=== PATIENT | male | born 1970 | race African-American/Black ===

== ENCOUNTER 2021-08-13 01:53 | Emergency (ER) | payer MEDICAID ==
[~2021-08-13] VITALS: Ht 190.5 cm; Wt 145.0 kg
[2021-08-13] MEDS ORDERED: HYDROCHLOROTHIAZIDE 25MG TABLET PO ONE (02:30)
[2021-08-13] MEDS ORDERED: CLONIDINE 0.1MG TABLET PO ONE (02:30)
[2021-08-13 03:10] VITALS: BP 156/85
== END 2021-08-13 03:31 | disposition home or self-care (01) ==
LOC: ER 01:53
DX: I10 Essential (primary) hypertension (principal); Z71.89 Other specified counseling
CPT/HCPCS: 99283

== ENCOUNTER 2021-08-20 23:28 | Inpatient (IN) | payer MEDICAID ==
[~2021-08-20] VITALS: Ht 188 cm; Wt 167.4 kg
[2021-08-21] MEDS ORDERED: NITROGLYCERIN 0.4MG TABLET SL SL PRN (03:00)
[2021-08-21] MEDS ORDERED: ASPIRIN 81MG TABLET PO ONE (03:00)
[2021-08-21 03:26] LABS: BASOPHILS % 0.4 % (0.0-2.0); EOSINOPHILS % 0.2 % (0.0-5.0); HEMATOCRIT. 37.9 % (42.0-52.0); HEMOGLOBIN. 12.7 g/dL (14.0-18.0); LYMPHOCYTES % 7.4 % (20.0-50.0); MEAN CORPUSCULAR HEMOGLOBIN 28.6 pg (28.0-32.0); MEAN CORPUSCULAR VOLUME 85.5 fL (80.0-94.0); PLATELET 356 x1000/uL (130-400); RED BLOOD CELL COUNT 4.43 mill/uL (4.7-6.1); RED CELL DISTRIBUTION WIDTH 13.6 % (11.6-14.6)
[2021-08-21 03:35] LABS: CHLORIDE 101 mEq/L (98-107)
[2021-08-21] MEDS ORDERED: AZITHROMYCIN 500MG/250ML 250 ML IV NR (05:00)
[2021-08-21] MEDS ORDERED: CEFTRIAXONE 1 G PREMIX 50 ML IV NR (05:00)
[2021-08-21 10:00] VITALS: BP 131/83
[2021-08-21] MEDS ORDERED: IOHEXOL-350 100 ML BOTTLE ONE (10:11)
[2021-08-21] MEDS ORDERED: IPRATROPIUM/ALBUTEROL 0.5-3(2.5)MG/3ML NEB HHN PRN (11:00)
[2021-08-21] MEDS ORDERED: ACETAMINOPHEN 325MG TABLET PO PRN (11:00)
[2021-08-21] MEDS ORDERED: ONDANSETRON HCL 4MG/2ML INJ IV PRN (11:00)
[2021-08-21] MEDS ORDERED: METF-873 PO (11:30)
[2021-08-21] MEDS ORDERED: ATOR40TA70 PO (11:30)
[2021-08-21] MEDS ORDERED: BENA40TA9 PO (11:30)
[2021-08-21] MEDS ORDERED: ASPI-1497 PO (11:30)
[2021-08-21] MEDS ORDERED: CARV3.1242 PO (11:30)
[2021-08-21] MEDS ORDERED: CHLO25TA2 PO (11:30)
[2021-08-21] MEDS ORDERED: AMLO10TA80 PO (11:30)
[2021-08-21 12:00] VITALS: BP 148/83
[2021-08-21] MEDS: LEVOFLOXACIN 500MG PREMIX 100 ML IV SCH (15:58)
[2021-08-21 16:00] VITALS: BP 120/70
[2021-08-21 17:48] LABS: *AMPHETAMINES SCREEN URINE NEGATIVE (NEGATIVE); *BARBITURATES SCREEN URINE NEGATIVE (NEGATIVE); *BENZODIAZEPINES SCREEN URINE NEGATIVE (NEGATIVE); *COCAINE SCREEN URINE NEGATIVE (NEGATIVE); OPIATES URINE SCREEN NEGATIVE (NEGATIVE)
[2021-08-21 17:49] LABS: CANNABINOID URINE SCREEN NEGATIVE (NEGATIVE); PHENCYCLIDINE URINE SCREEN NEGATIVE (NEGATIVE)
[2021-08-21 17:52] LABS: METHADONE URINE SCREEN NEGATIVE (NEGATIVE)
[2021-08-21 20:00] VITALS: BP 129/70
[2021-08-21] MEDS ORDERED: NALOXONE HCL 0.4MG/ML VIAL IV PRN (20:45)
[2021-08-22] VITALS: BP 129/70
[2021-08-22 04:00] VITALS: BP 102/67
[2021-08-22 06:43] LABS: CHLORIDE 103 mEq/L (98-107)
[2021-08-22 06:45] LABS: BASOPHILS % 0.3 % (0.0-2.0); EOSINOPHILS % 1.7 % (0.0-5.0); HEMATOCRIT. 37.2 % (42.0-52.0); HEMOGLOBIN. 12.5 g/dL (14.0-18.0); LYMPHOCYTES % 18.5 % (20.0-50.0); MEAN CORPUSCULAR HEMOGLOBIN 28.8 pg (28.0-32.0); MEAN CORPUSCULAR VOLUME 85.2 fL (80.0-94.0); MEAN PLATELET VOLUME 7.2 fl (7.4-10.4); MONOCYTES % 10.2 % (2.0-8.0); NEUTROPHILS % 69.3 % (40.0-76.0); PLATELET 296 x1000/uL (130-400); RED BLOOD CELL COUNT 4.36 mill/uL (4.7-6.1); RED CELL DISTRIBUTION WIDTH 13.8 % (11.6-14.6)
[2021-08-22 08:25] VITALS: BP 116/85
[2021-08-22] MEDS: ASPIRIN 81MG TABLET PO SCH (08:31)
[2021-08-22] MEDS: HYDROCODONE/ACETAMINOPHEN 5/325MG TABLET PO PRN ×2 (08:32→17:01)
[2021-08-22 12:15] VITALS: BP 117/78
[2021-08-22 16:05] VITALS: BP 139/89
[2021-08-22] MEDS: LEVOFLOXACIN 500MG PREMIX 100 ML IV SCH (16:27)
[2021-08-22 20:00] VITALS: BP 129/89
[2021-08-22] MEDS: METHYLPREDNISOLONE SOD SUCC 125 MG/2 ML VIAL IV SCH (22:00)
[2021-08-23] VITALS: BP 134/88
[2021-08-23] MEDS: IPRATROPIUM/ALBUTEROL 0.5-3(2.5)MG/3ML NEB HHN SCH ×3 (00:58→15:10)
[2021-08-23 04:00] VITALS: BP 143/88
[2021-08-23] MEDS: METHYLPREDNISOLONE SOD SUCC 125 MG/2 ML VIAL IV SCH ×2 (05:16→14:19)
[2021-08-23 08:00] VITALS: BP 140/96
[2021-08-23] MEDS: ASPIRIN 81MG TABLET PO SCH (08:57)
[2021-08-23] MEDS ORDERED: LEVOFLOXACIN 500MG TABLET PO SCH (11:00)
[2021-08-23 11:38] VITALS: BP 152/94
[2021-08-23] MEDS: DILTIAZEM HCL 30MG TABLET PO SCH ×2 (11:47→19:15)
[2021-08-23] MEDS ORDERED: DILT240C91 MT (12:35)
[2021-08-23] MEDS ORDERED: P20 MT (12:35)
[2021-08-23] MEDS ORDERED: LEVO500T89 MT (12:35)
[2021-08-23] MEDS ORDERED: CLONIDINE 0.1MG TABLET PO PRN (15:00)
[2021-08-23 16:00] VITALS: BP 152/95
[2021-08-23 16:27] VITALS: BP 152/94
[2021-08-23] MEDS ORDERED: SULF1TAB48 MT (16:29)
== END 2021-08-23 20:00 | disposition home or self-care (01) | DRG 203 ==
LOC: ER 23:28 → 6WST 08-21 04:57 → ENRESERV 08-21 07:21
PROVIDERS: ADMIT Internal Medicine; ATTEND Internal Medicine
DX: M94.0 Chondrocostal junction syndrome [Tietze] (principal); J96.01 Acute respiratory failure with hypoxia; N17.0 Acute kidney failure with tubular necrosis; E44.1 Mild protein-calorie malnutrition; J18.9 Pneumonia, unspecified organism; D64.9 Anemia, unspecified; E11.9 Type 2 diabetes mellitus without complications; E66.01 Morbid (severe) obesity due to excess calories; I10 Essential (primary) hypertension; I87.2 Venous insufficiency (chronic) (peripheral); I87.8 Other specified disorders of veins; L60.0 Ingrowing nail; T78.3XXA Angioneurotic edema, initial encounter; R79.89 Other specified abnormal findings of blood chemistry; Z20.822 Contact with and (suspected) exposure to COVID-19; Z82.49 Family history of ischemic heart disease and other diseases of the circulatory system; Z68.42 Body mass index [BMI] 45.0-49.9, adult; Z71.3 Dietary counseling and surveillance; T46.4X5A Adverse effect of angiotensin-converting-enzyme inhibitors, initial encounter
CPT/HCPCS: 36415; 71045; 71275; 80048; 80053; 80305; 82962; 83605; 83880; 84443; 84484; 85025; 85379; 87426; 93005; 93306; 93923; 93970; 97022; 97161; 99291; J0456; J0696; J1956; J2930; Q9967